=== PATIENT | female | born 1930 | race Hispanic/Latino ===

== ENCOUNTER 2018-04-30 11:14 | Inpatient (IN) | payer MEDICARE ==
--- NOTE | 2018-04-30 11:29 | Emergency Department Report ---
ED Neuro Deficit HPI - General Stated Complaint: AMS Time Seen by Provider: 04/30/18 11:20 Source: patient, EMS Mode of arrival: Stretcher Limitations: Other - History of Present Illness Initial Comments: 87 year old female the past medical history hypertension diabetes presents to the hospital with possible stroke symptoms. Mahi came to the home and at 10:45 AM noticed that patient's speech was abnormal. Patient's son was at the home with her all morning and apparently she was normal prior to this. Patient is alert to self states year is 2000, denies any pain. She presents hypertensive with a glucose that is in the 200s. Patient apparently fell 3 days ago striking her chin area. Ecchymosis noted to area. No LOC reported and patient has had normal mental status until today. - Related Data Home Medications: Previous Rx's Medication Instructions Recorded Last Taken Type Ipratropium/Albuterol Sulfate 1 ampul IH TIDRT ampul.neb 04/16/16 Unknown Rx [DUONEB *Not for PRN Use*] Lisinopril [Zestril TAB] 40 mg PO QDAY tablet 04/16/16 Unknown Rx amLODIPine [Norvasc] 10 mg PO QDAY tablet 04/16/16 Unknown Rx glipiZIDE [Glucotrol] 10 mg PO BIDDIAB tablet 04/16/16 Unknown Rx hydroCHLOROthiazide [HCTZ] 25 mg PO QDAY tablet 04/16/16 Unknown Rx metFORMIN [Glucophage] 1,000 mg PO BIDDIAB tablet 04/16/16 Unknown Rx oxyCODONE /ACETAMINOPHEN [Percocet 1 tab PO Q6HR PRN #20 tablet 04/16/16 Unknown Rx 5/325 mg] Amoxicillin/K Clav Tab [Augmentin 1 tab PO Q12HR #6 tab 09/04/16 Unknown Rx 875MG TAB] Allergies/Adverse Reactions: Allergies Allergy/AdvReac Type Severity Reaction Status Date / Time acetaminophen [From Tylenol] AdvReac Unknown Verified 04/11/16 19:20 ED Review of Systems ROS: Stated complaint: AMS Other details as noted in HPI Comment: All other systems reviewed and negative ED Past Medical Hx - Past Medical History Hx Hypertension: Yes Hx Diabetes: Yes Hx HIV: No - Surgical History Hx Cholecystectomy: Yes Additional Surgical History: Bilateral knee surgery - Social History Smoking Status: Unknown if ever smoked - Medications Home Medications: Home Medications Medication Instructions Recorded Confirmed Last Taken Type Ipratropium/Albuterol Sulfate 1 ampul IH TIDRT ampul.neb 04/16/16 Unknown Rx [DUONEB *Not for PRN Use*] Lisinopril [Zestril TAB] 40 mg PO QDAY tablet 04/16/16 Unknown Rx amLODIPine [Norvasc] 10 mg PO QDAY tablet 04/16/16 Unknown Rx glipiZIDE [Glucotrol] 10 mg PO BIDDIAB tablet 04/16/16 Unknown Rx hydroCHLOROthiazide [HCTZ] 25 mg PO QDAY tablet 04/16/16 Unknown Rx metFORMIN [Glucophage] 1,000 mg PO BIDDIAB tablet 04/16/16 Unknown Rx oxyCODONE /ACETAMINOPHEN [Percocet 1 tab PO Q6HR PRN #20 tablet 04/16/16 Unknown Rx 5/325 mg] Amoxicillin/K Clav Tab [Augmentin 1 tab PO Q12HR #6 tab 09/04/16 Unknown Rx 875MG TAB] ED Neuro Physical Exam - General Suspected Stroke: Yes - NIHSS Assessment Interval: Baseline 1a. Level of Consciousness: alert/keenly responsive 1b. LOC Questions: answers both correctly 1c. LOC Commands: performs tasks correctly 2. Best Gaze: normal 3. Visual: no visual loss 4. Facial Palsy: normal symmetrical movement 5b. Motor Arm Right: no drift 5a. Motor Arm Left: no drift 6a. Motor Leg Left: no drift 6b. Motor Leg Right: no drift 7. Limb Ataxia: absent 8. Sensory: normal 9. Best Language: no aphasia 10. Dysarthria: mild/moderate dysarthria 11. Extinction/Inattention: no abnormality Total Score: 1 Stroke Severity: Minor Stroke - Other Other exam information: General: No limitations, patient is alert in no acute distress Head exam: Ecchymosis under [place] from recent fall Eyes exam: Normal appearance, pupils equal reactive to light, extraocular movements intact ENT: Moist mucous membrane Neck exam: Normal inspection, full range of motion, no meningismus nontender Respiratory exam: Clear to auscultation bilateral, no wheezes, rales, crackles Cardiovascular: Normal rate and rhythm, normal heart sounds Abdomen: Soft, nondistended, and nontender, with normal bowel sounds, no rebound, or guarding Extremity: Full range of motion normal inspection no deformity. Right upper ant tib pain and bruising, from Back: Normal Inspection, full range of motion, no tenderness Neurologic: Alert, oriented x2, mildly surred speech, cranial nerves intact, no motor or sensory deficit see NIHSS Psychiatric: normal affect, normal mood Skin: Warm, dry, intact ED Course Vital Signs 04/30/18 04/30/18 04/30/18 11:34 11:37 11:46 Temperature Pulse Rate 77 83 Respiratory 22 22 22 Rate Blood Pressure 172/84 Blood Pressure [Left] O2 Sat by Pulse 98 99 98 Oximetry 04/30/18 04/30/18 04/30/18 12:01 12:05 12:40 Temperature 98.4 F Pulse Rate 79 70 70 Respiratory 28 H 24 25 H Rate Blood Pressure 172/84 168/57 Blood Pressure 168/57 [Left] O2 Sat by Pulse 99 100 100 Oximetry 04/30/18 04/30/18 13:00 13:31 Temperature Pulse Rate 76 81 Respiratory 16 27 H Rate Blood Pressure 167/68 146/53 Blood Pressure [Left] O2 Sat by Pulse 98 98 Oximetry - Consultations Consultation #1: 04/30/18 12:02 Dr Wilcox (neuro) evaluated pt and pt has some mild confusion but otherwise nonfocal, tpa not rec at this tmie - Lab Data Result diagrams: 04/30/18 11:35 04/30/18 11:35 Lab Results 04/30/18 04/30/18 04/30/18 Range/Units 11:35 11:35 11:35 WBC 11.4 H (4.5-11.0) K/mm3 RBC 4.91 (3.65-5.03) M/mm3 Hgb 14.9 H (10.1-14.3) gm/dl Hct 44.4 H (30.3-42.9) % MCV 90 (79-97) fl MCH 30 (28-32) pg MCHC 34 (30-34) % RDW 14.6 (13.2-15.2) % Plt Count 273 (140-440) K/mm3 Lymph % (Auto) 30.6 (13.4-35.0) % Lander % (Auto) 9.1 H (0.0-7.3) % Eos % (Auto) 1.2 (0.0-4.3) % Baso % (Auto) 0.8 (0.0-1.8) % Lymph # 3.5 (1.2-5.4) K/mm3 Lander # 1.0 H (0.0-0.8) K/mm3 Eos # 0.1 (0.0-0.4) K/mm3 Baso # 0.1 (0.0-0.1) K/mm3 Seg Neutrophils % 58.3 (40.0-70.0) % Seg Neutrophils # 6.7 (1.8-7.7) K/mm3 PT 12.4 (12.2-14.9) Sec. INR 0.87 (0.87-1.13) APTT 26.2 (24.2-36.6) Sec. Thrombin Time (15.1-19.6) Sec. Sodium 141 (137-145) mmol/L Potassium 3.7 (3.6-5.0) mmol/L Chloride 101.0 (98-107) mmol/L Carbon Dioxide 20 L (22-30) mmol/L Anion Gap 24 mmol/L BUN 16 (7-17) mg/dL Creatinine 1.0 (0.7-1.2) mg/dL Estimated GFR 53 ml/min BUN/Creatinine Ratio 16 % Glucose 224 H (65-100) mg/dL Calcium 9.0 (8.4-10.2) mg/dL Magnesium (1.7-2.3) mg/dL Troponin T < 0.010 (0.00-0.029) ng/mL Urine Color (Yellow) Urine Turbidity (Clear) Urine pH (5.0-7.0) Ur Specific Loyal (1.003-1.030) Urine Protein (Negative) mg/dL Urine Glucose (UA) (Negative) mg/dL Urine Ketones (Negative) mg/dL Urine Blood (Negative) Urine Nitrite (Negative) Urine Bilirubin (Negative) Urine Urobilinogen (<2.0) mg/dL Ur Leukocyte Esterase (Negative) Urine WBC (Auto) (0.0-6.0) /HPF Urine RBC (Auto) (0.0-6.0) /HPF Urine Bacteria (Auto) (Negative) /HPF Urine Mucus /HPF 04/30/18 04/30/18 04/30/18 Range/Units 11:35 11:35 11:35 WBC (4.5-11.0) K/mm3 RBC (3.65-5.03) M/mm3 Hgb (10.1-14.3) gm/dl Hct (30.3-42.9) % MCV (79-97) fl MCH (28-32) pg MCHC (30-34) % RDW (13.2-15.2) % Plt Count (140-440) K/mm3 Lymph % (Auto) (13.4-35.0) % Lander % (Auto) (0.0-7.3) % Eos % (Auto) (0.0-4.3) % Baso % (Auto) (0.0-1.8) % Lymph # (1.2-5.4) K/mm3 Lander # (0.0-0.8) K/mm3 Eos # (0.0-0.4) K/mm3 Baso # (0.0-0.1) K/mm3 Seg Neutrophils % (40.0-70.0) % Seg Neutrophils # (1.8-7.7) K/mm3 PT (12.2-14.9) Sec. INR (0.87-1.13) APTT (24.2-36.6) Sec. Thrombin Time 16.6 (15.1-19.6) Sec. Sodium (137-145) mmol/L Potassium (3.6-5.0) mmol/L Chloride (98-107) mmol/L Carbon Dioxide (22-30) mmol/L Anion Gap mmol/L BUN (7-17) mg/dL Creatinine (0.7-1.2) mg/dL Estimated GFR ml/min BUN/Creatinine Ratio % Glucose (65-100) mg/dL Calcium (8.4-10.2) mg/dL Magnesium 1.60 L (1.7-2.3) mg/dL Troponin T < 0.010 (0.00-0.029) ng/mL Urine Color (Yellow) Urine Turbidity (Clear) Urine pH (5.0-7.0) Ur Specific Loyal (1.003-1.030) Urine Protein (Negative) mg/dL Urine Glucose (UA) (Negative) mg/dL Urine Ketones (Negative) mg/dL Urine Blood (Negative) Urine Nitrite (Negative) Urine Bilirubin (Negative) Urine Urobilinogen (<2.0) mg/dL Ur Leukocyte Esterase (Negative) Urine WBC (Auto) (0.0-6.0) /HPF Urine RBC (Auto) (0.0-6.0) /HPF Urine Bacteria (Auto) (Negative) /HPF Urine Mucus /HPF 04/30/18 Range/Units 12:05 WBC (4.5-11.0) K/mm3 RBC (3.65-5.03) M/mm3 Hgb (10.1-14.3) gm/dl Hct (30.3-42.9) % MCV (79-97) fl MCH (28-32) pg MCHC (30-34) % RDW (13.2-15.2) % Plt Count (140-440) K/mm3 Lymph % (Auto) (13.4-35.0) % Lander % (Auto) (0.0-7.3) % Eos % (Auto) (0.0-4.3) % Baso % (Auto) (0.0-1.8) % Lymph # (1.2-5.4) K/mm3 Lander # (0.0-0.8) K/mm3 Eos # (0.0-0.4) K/mm3 Baso # (0.0-0.1) K/mm3 Seg Neutrophils % (40.0-70.0) % Seg Neutrophils # (1.8-7.7) K/mm3 PT (12.2-14.9) Sec. INR (0.87-1.13) APTT (24.2-36.6) Sec. Thrombin Time (15.1-19.6) Sec. Sodium (137-145) mmol/L Potassium (3.6-5.0) mmol/L Chloride (98-107) mmol/L Carbon Dioxide (22-30) mmol/L Anion Gap mmol/L BUN (7-17) mg/dL Creatinine (0.7-1.2) mg/dL Estimated GFR ml/min BUN/Creatinine Ratio % Glucose (65-100) mg/dL Calcium (8.4-10.2) mg/dL Magnesium (1.7-2.3) mg/dL Troponin T (0.00-0.029) ng/mL Urine Color Yellow (Yellow) Urine Turbidity Clear (Clear) Urine pH 5.0 (5.0-7.0) Ur Specific Loyal 1.011 (1.003-1.030) Urine Protein <15 mg/dl (Negative) mg/dL Urine Glucose (UA) >=500 (Negative) mg/dL Urine Ketones Neg (Negative) mg/dL Urine Blood Neg (Negative) Urine Nitrite Neg (Negative) Urine Bilirubin Neg (Negative) Urine Urobilinogen < 2.0 (<2.0) mg/dL Ur Leukocyte Esterase Neg (Negative) Urine WBC (Auto) 1.0 (0.0-6.0) /HPF Urine RBC (Auto) < 1.0 (0.0-6.0) /HPF Urine Bacteria (Auto) 4+ (Negative) /HPF Urine Mucus Few /HPF - EKG Data -: EKG Interpreted by Fl EKG shows normal: sinus rhythm, axis (qrs 100), QRS complexes (qrsd 91), ST-T waves (no stemi) Rate: normal (75) - Radiology Data Radiology results: report reviewed PROCEDURE: CT CERVICAL SPINE WO CON TECHNIQUE: Computerized tomography of the cervical spine was performed from the skull base to T1 without contrast material. Coronal and sagittal reconstructed imaging provided. CT DOSE LENGTH PRODUCT: 448.84 mGy-cm. HISTORY: fall with chin injury COMPARISONS: None currently available. FINDINGS: Diffuse osteopenia limits evaluation. There is no fracture. There is no atlantooccipital dislocation. C1-C2: Moderate to severe arthritis with superior subluxation. Hypertrophic osseous changes noted. Mild prominence of the transverse ligament without significant canal narrowing. C2- C3: Symmetrical bulge. Bilateral uncovertebral and facet arthropathy. Moderate left foraminal narrowing. Right foramen is intact. Mild spinal canal narrowing. C3-C4: Minimal anterior subluxation. Symmetrical bulge. Left uncovertebral and facet arthropathy. Severe left foraminal narrowing. Mild right foraminal narrowing. No significant canal narrowing. C4-C5: Symmetrical bulge. Left uncovertebral and facet arthropathy. Severe left foraminal narrowing. Mild right foraminal narrowing. No significant canal narrowing. C5-C6: Symmetrical disc osteophyte complex. Superimposed central disc aspect protrusion measuring approximately 2.8 mm. Mild spinal canal narrowing. Bilateral foraminal are intact. C6-C7: Minimal anterior subluxation. Symmetrical disc osteophyte complex. Moderate to severe right foraminal narrowing. Mild left foraminal narrowing. Mild spinal canal narrowing. C7-T1: No significant canal or foraminal narrowing. Prevertebral soft tissues are unremarkable. Mild carotid vascular calcifications. Minimal right apical pleural thickening. IMPRESSION: * No fracture. * Diffuse osteopenia. * Degenerative discs and arthropathy. 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 CT FACIAL BONES WITHOUT CONTRAST: HISTORY: Fall, chin injury. TECHNIQUE: Helical CT images with sagittal and coronal CT reformations. FINDINGS: All paranasal sinuses are clear. No sinus wall fracture, fluid level or opacification. The orbital cavities are symmetric and intact. The mandible is intact. The skull base and upper cervical spine demonstrate no evidence for acute injury. Poor dentition is noted. IMPRESSION: Unremarkable CT of the facial bones. CT HEAD WITHOUT CONTRAST: HISTORY: Stroke, neurological deficit. TECHNIQUE: Sequential CT images without contrast. FINDINGS: Images obtained show bilateral prominence of the sulci and ventricles. There are no abnormal intra- or extra- axial blood or fluid collections. There are no focal masses or evidence of mass effect. The hel[place] white matter differentiation appears within normal limits. Regions of periventricular decreased attenuation are consistent with microangiopathic ischemic disease. The posterior fossa structures including the fourth ventricle, cerebellum, and brainstem appear normal. IMPRESSION: Evidence of atrophy and microangiopathic ischemic disease. No acute intracranial process noted. No significant change since 09/01/16. CXR report pending right tib fib report pending - Differential Diagnosis CVA, mass, ICH, encephalopathy Critical Care Time: No Critical care attestation.: If time is entered above; I have spent that time in minutes in the direct care of this critically ill patient, excluding procedure time. ED Disposition Clinical Impression: Altered mental status, Slurred speech, History of recent fall, Hypertension Disposition: OP ADMIT IP TO THIS HOSP Is pt being admited?: Yes Condition: Stable Time of Disposition: 14:27 (Dr Austin/hosp)
--- NOTE | 2018-04-30 11:46 | Cat Scan Report ---
CT HEAD WITHOUT CONTRAST: HISTORY: Stroke, neurological deficit. TECHNIQUE: Sequential CT images without contrast. FINDINGS: Images obtained show bilateral prominence of the sulci and ventricles. There are no abnormal intra- or extra-axial blood or fluid collections. There are no focal masses or evidence of mass effect. The hel[place] white matter differentiation appears within normal limits. Regions of periventricular decreased attenuation are consistent with microangiopathic ischemic disease. The posterior fossa structures including the fourth ventricle, cerebellum, and brainstem appear normal. IMPRESSION: Evidence of atrophy and microangiopathic ischemic disease. No acute intracranial process noted. No significant change since 09/01/16.
--- NOTE | 2018-04-30 11:46 | Cat Scan Report ---
CT FACIAL BONES WITHOUT CONTRAST: HISTORY: Fall, chin injury. TECHNIQUE: Helical CT images with sagittal and coronal CT reformations. FINDINGS: All paranasal sinuses are clear. No sinus wall fracture, fluid level or opacification. The orbital cavities are symmetric and intact. The mandible is intact. The skull base and upper cervical spine demonstrate no evidence for acute injury. Poor dentition is noted. IMPRESSION: Unremarkable CT of the facial bones.
[2018-04-30 11:47] LABS: Basophils # (Auto) 0.1 K/mm3 (0.0-0.1); Basophils % (Auto) 0.8 % (0.0-1.8); Eosinophils # (Auto) 0.1 K/mm3 (0.0-0.4); Eosinophils % (Auto) 1.2 % (0.0-4.3); Hematocrit 44.4 % (30.3-42.9); Hemoglobin 14.9 gm/dl (10.1-14.3); Lymphocytes # (Auto) 3.5 K/mm3 (1.2-5.4); Lymphocytes % (Auto) 30.6 % (13.4-35.0); Mean Corpuscular HGB Conc 34 % (30-34); Mean Corpuscular Volume 90 fl (79-97); Monocytes % (Auto) 9.1 % (0.0-7.3); Platelet Count 273 K/mm3 (140-440); Red Blood Count 4.91 M/mm3 (3.65-5.03); Red Cell Distribution Width 14.6 % (13.2-15.2)
[2018-04-30 11:57] LABS: INR 0.87 (0.87-1.13)
[2018-04-30 11:58] LABS: Partial Thromboplastin Time 26.2 Sec. (24.2-36.6)
[2018-04-30 12:02] LABS: BUN/Creatinine Ratio 16; Blood Urea Nitrogen 16 mg/dL (7-17); Hemolysis Index 7
--- NOTE | 2018-04-30 12:30 | Emergency Department Report ---
ED Neuro Deficit HPI - General Chief Complaint: Neuro Symptoms/Deficit Stated Complaint: AMS Time Seen by Provider: 04/30/18 11:20 Source: patient, EMS Mode of arrival: Stretcher Limitations: Altered Mental Status, Other - History of Present Illness -: unknown Time: 11:37 Last Observed Normal: 10:45 (per nurse who obtained info from son) Location: altered Presenting Symptoms: Present: Altered Mental Status Place: other (she was at her [facility]) - Related Data Home Medications: Previous Rx's Medication Instructions Recorded Last Taken Type Ipratropium/Albuterol Sulfate 1 ampul IH TIDRT ampul.neb 04/16/16 Unknown Rx [DUONEB *Not for PRN Use*] Lisinopril [Zestril TAB] 40 mg PO QDAY tablet 04/16/16 Unknown Rx amLODIPine [Norvasc] 10 mg PO QDAY tablet 04/16/16 Unknown Rx glipiZIDE [Glucotrol] 10 mg PO BIDDIAB tablet 04/16/16 Unknown Rx hydroCHLOROthiazide [HCTZ] 25 mg PO QDAY tablet 04/16/16 Unknown Rx metFORMIN [Glucophage] 1,000 mg PO BIDDIAB tablet 04/16/16 Unknown Rx oxyCODONE /ACETAMINOPHEN [Percocet 1 tab PO Q6HR PRN #20 tablet 04/16/16 Unknown Rx 5/325 mg] Amoxicillin/K Clav Tab [Augmentin 1 tab PO Q12HR #6 tab 09/04/16 Unknown Rx 875MG TAB] Allergies/Adverse Reactions: Allergies Allergy/AdvReac Type Severity Reaction Status Date / Time acetaminophen [From Tylenol] AdvReac Unknown Verified 04/11/16 19:20 ED Review of Systems ROS: Stated complaint: AMS Other details as noted in HPI ED Past Medical Hx - Past Medical History Previous Medical History?: Yes Hx Hypertension: Yes Hx Diabetes: Yes Hx HIV: No Additional medical history: hypothyroidism - Surgical History Past Surgical History?: Yes Hx Cholecystectomy: Yes Additional Surgical History: Bilateral knee surgery - Social History Smoking Status: Unknown if ever smoked - Medications Home Medications: Home Medications Medication Instructions Recorded Confirmed Last Taken Type Ipratropium/Albuterol Sulfate 1 ampul IH TIDRT ampul.neb 04/16/16 Unknown Rx [DUONEB *Not for PRN Use*] Lisinopril [Zestril TAB] 40 mg PO QDAY tablet 04/16/16 Unknown Rx amLODIPine [Norvasc] 10 mg PO QDAY tablet 04/16/16 Unknown Rx glipiZIDE [Glucotrol] 10 mg PO BIDDIAB tablet 04/16/16 Unknown Rx hydroCHLOROthiazide [HCTZ] 25 mg PO QDAY tablet 04/16/16 Unknown Rx metFORMIN [Glucophage] 1,000 mg PO BIDDIAB tablet 04/16/16 Unknown Rx oxyCODONE /ACETAMINOPHEN [Percocet 1 tab PO Q6HR PRN #20 tablet 04/16/16 Unknow n Rx 5/325 mg] Amoxicillin/K Clav Tab [Augmentin 1 tab PO Q12HR #6 tab 09/04/16 Unknown Rx 875MG TAB] ED Neuro Physical Exam - General Limitations: Other Suspected Stroke: Yes - Neurological Exam Neurological exam: Present: altered - NIHSS Assessment Interval: Baseline 1a. Level of Consciousness: alert/keenly responsive 1b. LOC Questions: answers 1 question correctly 1c. LOC Commands: performs tasks correctly 2. Best Gaze: normal 3. Visual: no visual loss 4. Facial Palsy: normal symmetrical movement 5b. Motor Arm Right: no drift 5a. Motor Arm Left: no drift 6a. Motor Leg Left: no drift 6b. Motor Leg Right: no drift 7. Limb Ataxia: absent 8. Sensory: normal 9. Best Language: no aphasia 10. Dysarthria: normal 11. Extinction/Inattention: no abnormality Total Score: 1 Stroke Severity: Minor Stroke - Psychiatric Psychiatric exam: Present: anxious ED Course Vital Signs 04/30/18 04/30/18 04/30/18 11:34 11:37 11:46 Temperature Pulse Rate 77 83 Respiratory 22 22 22 Rate Blood Pressure 172/84 Blood Pressure [Left] O2 Sat by Pulse 98 99 98 Oximetry 04/30/18 12:05 Temperature 98.4 F Pulse Rate 70 Respiratory 24 Rate Blood Pressure Blood Pressure 168/57 [Left] O2 Sat by Pulse 100 Oximetry - Lab Data Result diagrams: 04/30/18 11:35 04/30/18 11:35 Lab Results 04/30/18 04/30/18 04/30/18 Range/Units 11:35 11:35 11:35 WBC 11.4 H (4.5-11.0) K/mm3 RBC 4.91 (3.65-5.03) M/mm3 Hgb 14.9 H (10.1-14.3) gm/dl Hct 44.4 H (30.3-42.9) % MCV 90 (79-97) fl MCH 30 (28-32) pg MCHC 34 (30-34) % RDW 14.6 (13.2-15.2) % Plt Count 273 (140-440) K/mm3 Lymph % (Auto) 30.6 (13.4-35.0) % [place] % (Auto) 9.1 H (0.0-7.3) % Eos % (Auto) 1.2 (0.0-4.3) % Baso % (Auto) 0.8 (0.0-1.8) % Lymph # 3.5 (1.2-5.4) K/mm3 [place] # 1.0 H (0.0-0.8) K/mm3 Eos # 0.1 (0.0-0.4) K/mm3 Baso # 0.1 (0.0-0.1) K/mm3 Seg Neutrophils % 58.3 (40.0-70.0) % Seg Neutrophils # 6.7 (1.8-7.7) K/mm3 PT 12.4 (12.2-14.9) Sec. INR 0.87 (0.87-1.13) APTT 26.2 (24.2-36.6) Sec. Thrombin Time (15.1-19.6) Sec. Sodium 141 (137-145) mmol/L Potassium 3.7 (3.6-5.0) mmol/L Chloride 101.0 (98-107) mmol/L Carbon Dioxide 20 L (22-30) mmol/L Anion Gap 24 mmol/L BUN 16 (7-17) mg/dL Creatinine 1.0 (0.7-1.2) mg/dL Estimated GFR 53 ml/min BUN/Creatinine Ratio 16 % Glucose 224 H (65-100) mg/dL Calcium 9.0 (8.4-10.2) mg/dL Magnesium (1.7-2.3) mg/dL Troponin T < 0.010 (0.00-0.029) ng/mL 04/30/18 04/30/18 Range/Units 11:35 11:35 WBC (4.5-11.0) K/mm3 RBC (3.65-5.03) M/mm3 Hgb (10.1-14.3) gm/dl Hct (30.3-42.9) % MCV (79-97) fl MCH (28-32) pg MCHC (30-34) % RDW (13.2-15.2) % Plt Count (140-440) K/mm3 Lymph % (Auto) (13.4-35.0) % [place] % (Auto) (0.0-7.3) % Eos % (Auto) (0.0-4.3) % Baso % (Auto) (0.0-1.8) % Lymph # (1.2-5.4) K/mm3 [place] # (0.0-0.8) K/mm3 Eos # (0.0-0.4) K/mm3 Baso # (0.0-0.1) K/mm3 Seg Neutrophils % (40.0-70.0) % Seg Neutrophils # (1.8-7.7) K/mm3 PT (12.2-14.9) Sec. INR (0.87-1.13) APTT (24.2-36.6) Sec. Thrombin Time 16.6 (15.1-19.6) Sec. Sodium (137-145) mmol/L Potassium (3.6-5.0) mmol/L Chloride (98-107) mmol/L Carbon Dioxide (22-30) mmol/L Anion Gap mmol/L BUN (7-17) mg/dL Creatinine (0.7-1.2) mg/dL Estimated GFR ml/min BUN/Creatinine Ratio % Glucose (65-100) mg/dL Calcium (8.4-10.2) mg/dL Magnesium 1.60 L (1.7-2.3) mg/dL Troponin T (0.00-0.029) ng/mL - Radiology Data Radiology results: report reviewed, image reviewed - Medical Decision Making [facility] Consult Note Impression: 1. r/o stroke vs hypertensive emergency Recommendations: 1. Not a candidate for tPa given currently w/o disabling symptoms 2. Not an LVO 3. if no blood on head CT then aspirin x 1, adn recommend MRI brain to r/o stroke, MRA H/N, inpatient w/u; d/w ED physician metrics: LKN: 1045 per nurse (unable to confirm this, called number on chart) door: 1120 TS called 1130 TS connected [id number] NIHSS [id number] Anna Wilcox MD [facility], [facility] [phone] CC: HPI: 87 yo female who is unable to tell me why she's hear, she rubs her right chin/jaw region when I ask her but unable to tell me whats wrong; per nurse at bedside the report from son was that she was LKN 1045 hrs and while at [facility] she was noted to be more talkative than normal and not making comp lete sense, seemed confused, no focal features noted; BP on arrival was 230/119; now down to 172/84. VS noted NIHSS = 1 for missing month appears anxious, confused Medical Decision Making: - Extensive number of diagnosis or management options are considered above. - Extensive amount of complex data reviewed. - High risk of complication and/or morbidity or mortality are associated with differential diagnostic considerations above. - There may be Uncertain outcome and increased probability of prolonged functional impairment or high probability of severe prolonged functional impairment associated with some of these differential diagnosis. Medical Data Reviewed: 1.Data reviewed include clinical labs, radiology, Medical Tests; 2.Tests results discussed w/performing or interpreting physician; 3.Obtaining/reviewing old medical records; 4.Obtaining case history from another source; 5.Independent review of image, tracing or specimen. Critical care attestation.: If time is entered above; I have spent that time in minutes in the direct care of this critically ill patient, excluding procedure time. ED Disposition Clinical Impression: Altered mental status Disposition: DC-09 OP ADMIT IP TO THIS HOSP Is pt being admited?: Yes Condition: Stable Referrals: JUAN JOSE MENDES MD [Primary Care Provider] - 3-5 Days
[2018-04-30 12:44] LABS: Bacteria,Urine 4+ /HPF (Negative); Bilirubin,Urine NEG (Negative); Blood,Urine NEG (Negative); Color,Urine Yellow (Yellow); Mucus,Urine FEW /HPF; Protein,Urine <15 mg/dL mg/dL (Negative); RBC,Urine < 1.0 /HPF (0.0-6.0); Urobilinogen,Urine < 2.0 mg/dL (<2.0)
[2018-04-30] MEDS ORDERED: MAGNESIUM SULFATE 1 GM in NACL 0.9% 50 ML IV ONE (12:56)
--- NOTE | 2018-04-30 13:50 | Cat Scan Report ---
PROCEDURE: CT CERVICAL SPINE WO CON TECHNIQUE: Computerized tomography of the cervical spine was performed from the skull base to T1 with out contrast material. Coronal and sagittal reconstructed imaging provided. CT DOSE LENGTH PRODUCT: 448.84 mGy-cm. HISTORY: fall with chin injury COMPARISONS: None currently available. FINDINGS: Diffuse osteopenia limits evaluation. There is no fracture. There is no atlantooccipital dislocation. C1-C2: Moderate to severe arthritis with superior subluxation. Hypertrophic osseous changes noted. Mi ld prominence of the transverse ligament without significant canal narrowing. C2-C3: Symmetrical bulge. Bilateral uncovertebral and facet arthropathy. Moderate left foraminal narr owing. Right foramen is intact. Mild spinal canal narrowing. C3-C4: Minimal anterior subluxation. Symmetrical bulge. Left uncovertebral and facet arthropathy. Sev ere left foraminal narrowing. Mild right foraminal narrowing. No significant canal narrowing. C4-C5: Symmetrical bulge. Left uncovertebral and facet arthropathy. Severe left foraminal narrowing. Mild right foraminal narrowing. No significant canal narrowing. C5-C6: Symmetrical disc osteophyte complex. Superimposed central disc aspect protrusion measuring devante roximately 2.8 mm. Mild spinal canal narrowing. Bilateral foraminal are intact. C6-C7: Minimal anterior subluxation. Symmetrical disc osteophyte complex. Moderate to severe right fo raminal narrowing. Mild left foraminal narrowing. Mild spinal canal narrowing. C7-T1: No significant canal or foraminal narrowing. Prevertebral soft tissues are unremarkable. Mild carotid vascular calcifications. Minimal right apical pleural thickening. IMPRESSION: * No fracture. * Diffuse osteopenia. * Degenerative discs and arthropathy. 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 This document is electronically signed by West Bullard MD., April 30 2018 01:47:24 PM ET
[2018-04-30] MEDS ORDERED: MAGNESIUM SULFATE 2GM/50ML 0 GM/0 ML BAG IV ONE (14:25)
--- NOTE | 2018-04-30 14:45 | XRay Report ---
AP CHEST: HISTORY: Short of breath AP view of the chest demonstrates a normal mediastinal and cardiac contour with clear lungs and normal bony and soft tissue structures. IMPRESSION: Unremarkable AP chest.
--- NOTE | 2018-04-30 14:45 | XRay Report ---
RIGHT TIBIA/FIBULA: History: Pain Previous right knee replacement is noted. The bones are mildly demineralized but intact. No evidence for fracture, bone lesion or malalignment. The soft tissues are unremarkable. IMPRESSION: No acute injury is identified.
--- NOTE | 2018-04-30 15:47 | History and Physical Report ---
History of Present Illness Chief complaint: confused History of present illness: 87 YO Female with DM, HTN presents to ED for evaluation. Pt was in her usual state of health upon waking from sleep this morning around 0830hrs. Pt is confused and unable to provide history. Pt history taken from ED staff, and family members. Pt was found to be confused, with slurred speech, and generalized weakness around 1045. Pt was found by her hairdresser to have the aforementioned symptoms when it was time to get her hair done this morning. EMS notified, and upon arrival the patient was found to have neurologic deficit. Code Strike was called and the patient transported to [facility]. Pt seen and evaluated in ED and found to have symptoms of CVA. Pt is outside therapeutic window for TPA. No further history obtainable. Pt admitted to telemetry. Pt initiated on CVA protocol. Previous Admission on 09/01/16 reviewed. All listed medication reconciled at time of admission. Past History Past Medical History: diabetes, hypertension, other (debility,dementia) Past Surgical History: total knee replacement Medications and Allergies Allergies Allergy/AdvReac Type Severity Reaction Status Date / Time acetaminophen [From Tylenol] AdvReac Unknown Verified 04/11/16 19:20 Home Medications Medication Instructions Recorded Confirmed Last Taken Type Lisinopril [Zestril TAB] 40 mg PO QDAY tablet 04/16/16 04/30/18 Unknown Rx amLODIPine [Norvasc] 10 mg PO QDAY tablet 04/16/16 04/30/18 Unknown Rx glipiZIDE [Glucotrol] 10 mg PO BIDDIAB tablet 04/16/16 04/30/18 Unknown Rx hydroCHLOROthiazide [HCTZ] 25 mg PO QDAY tablet 04/16/16 04/30/18 Unknown Rx Alendronate Sodium [Fosamax] 70 mg PO QWEEK 04/30/18 04/30/18 Unknown History AtorvaSTATin [Lipitor] 20 mg PO QHS 04/30/18 04/30/18 Unknown History Citalopram [celeXA] 20 mg PO QDAY 04/30/18 04/30/18 Unknown History Levothyroxine [Synthroid] 50 mcg PO QAM 04/30/18 04/30/18 Unknown History Review of Systems ROS unobtainable: due to mental status Exam - Constitutional Vitals: Temp Pulse Resp BP Pulse Ox 98.4 F 73 11 L 152/54 94 04/30/18 12:05 04/30/18 15:00 04/30/18 15:00 04/30/18 15:00 04/30/18 15:00 General appearance: Present: mild distress - EENT Eyes: Present: PERRL ENT: hearing intact, clear oral mucosa - Neck Neck: Present: supple, normal ROM - Respiratory Respiratory effort: normal Respiratory: bilateral: CTA - Cardiovascular Heart Sounds: Present: S1 & S2. Absent: rub, click - Extremities Extremities: pulses symmetrical, No edema Peripheral Pulses: within normal limits - Abdominal General gastrointestinal: Present: soft, non-tender, non-distended, normal bowel sounds Female genitourinary: Present: normal - Integumentary Integumentary: Present: clear, warm, dry - Musculoskeletal Musculoskeletal: gait normal, strength equal bilaterally - Psychiatric Psychiatric: no appropriate mood/affect, no intact judgment & insight, no memory intact - Neurologic Neurologic: CNII-XII intact, moves all extremities, no gait normal Results - Labs CBC & Chem 7: 04/30/18 11:35 04/30/18 11:35 Labs: Abnormal lab results 04/30/18 04/30/18 04/30/18 Range/Units 11:35 11:35 11:35 WBC 11.4 H (4.5-11.0) K/mm3 Hgb 14.9 H (10.1-14.3) gm/dl Hct 44.4 H (30.3-42.9) % [place] % (Auto) 9.1 H (0.0-7.3) % [place] # 1.0 H (0.0-0.8) K/mm3 Carbon Dioxide 20 L (22-30) mmol/L Glucose 224 H (65-100) mg/dL Magnesium 1.60 L (1.7-2.3) mg/dL Assessment and Plan - Patient Problems (1) CVA (cerebral vascular accident) Current Visit: Yes Status: Acute Qualifiers: CVA mechanism: unspecified Qualified Code(s): I63.9 - Cerebral infarction, unspecified Plan to address problem: Stroke Protocol: Admit to telemetry, CT Head, MRI Brain, MRA Brain, Echo, Carotid Doppler, antiplatelet therapy, Neurology consulted in ED, PT/OT/Speech therapy, lipid panel, statin therapy. (2) Encephalopathy Current Visit: Yes Status: Acute Plan to address problem: CT Head, neuro check, thyroid panel, seizure precautions, aspiration precautions, fall precautions (3) Debility Current Visit: Yes Status: Acute Plan to address problem: PT consulted, supportive care, (4) Fall Current Visit: Yes Status: Acute Qualifiers: Encounter type: initial encounter Qualified Code(s): W19.XXXA - Unspecified fall, initial encounter Plan to address problem: Fall precautions, (5) SIRS (systemic inflammatory response syndrome) Current Visit: Yes Status: Acute Plan to address problem: CBC, CMP, Empiric antibiotic therapy x 1 dose, repeat CBC in AM (6) DVT prophylaxis Current Visit: Yes Status: Acute Plan to address problem: SCD to BLE while in bed
[2018-04-30] MEDS ORDERED: DULCOLAX PR PRN (15:51)
[2018-04-30] MEDS ORDERED: ZOFRAN IV PRN (15:51)
[2018-04-30] MEDS ORDERED: MILK OF MAGNESIA PO PRN (15:51)
[2018-04-30] MEDS ORDERED: TYLENOL PO PRN (15:51)
[2018-04-30] MEDS ORDERED: SODIUM CHLORIDE FLUSH SYRINGE 10 ML IV PRN (15:51)
[2018-04-30] MEDS ORDERED: PHENERGAN PR PRN (15:51)
[2018-04-30] MEDS ORDERED: PROVENTIL IH PRN (15:51)
[2018-04-30] MEDS ORDERED: REGLAN PO PRN (15:51)
[2018-04-30] MEDS ORDERED: ROCEPHIN/NS 1 GM/50 ML 1 GM/50 ML BAG IV ONE ×2 (15:56→17:11)
[2018-04-30] MEDS ORDERED: D50W (25GM) Syringe IV PRN (20:39)
[2018-04-30] MEDS: NORVASC PO SCH (21:21)
[2018-04-30] MEDS: ZESTRIL PO SCH (21:22)
[2018-04-30] MEDS: HumaLOG SUB-Q SCH (22:56)
[2018-05-01] MEDS: HumaLOG SUB-Q SCH ×4 (07:40→21:25)
[2018-05-01] MEDS: SYNTHROID PO SCH (10:06)
[2018-05-01] MEDS: NORVASC PO SCH (10:07)
[2018-05-01] MEDS: celeXA PO SCH (10:07)
[2018-05-01] MEDS: ZESTRIL PO SCH (10:08)
--- NOTE | 2018-05-01 12:03 | Progress Note ---
Assessment and Plan Assessment and plan: Acute CVA. Follow-up MRI/MRA, echocardiogram and carotid Dopplers. Neurology consultation. Encephalopathy. Resolved. Hypertension. Continue antihypertensive medications. Diabetes mellitus type II. Continue Accu-Cheks and sliding scale as History Interval history: No new issues overnight. Hospitalist Physical - Constitutional Vitals: Temp Pulse Resp BP Pulse Ox 98.3 F 78 20 125/46 91 05/01/18 11:25 05/01/18 11:25 05/01/18 11:25 05/01/18 11:25 05/01/18 11:25 General appearance: Present: no acute distress - EENT Eyes: Present: PERRL, EOM intact ENT: hearing intact, clear oral mucosa, dentition normal - Neck Neck: Present: supple, normal ROM - Respiratory Respiratory effort: normal Respiratory: bilateral: CTA - Cardiovascular Rhythm: regular Heart Sounds: Present: S1 & S2. Absent: gallop, rub - Extremities Extremities: no ischemia, No edema, Full ROM - Abdominal General gastrointestinal: soft, non-tender, non-distended, normal bowel sounds - Integumentary Integumentary: Present: clear, warm, dry - Neurologic Neurologic: CNII-XII intact, moves all extremities Results - Labs CBC & Chem 7: 04/30/18 11:35 04/30/18 11:35 Labs: Laboratory Last Values WBC 11.4 K/mm3 (4.5-11.0) H 04/30/18 11:35 RBC 4.91 M/mm3 (3.65-5.03) 04/30/18 11:35 Hgb 14.9 gm/dl (10.1-14.3) H 04/30/18 11:35 Hct 44.4 % (30.3-42.9) H 04/30/18 11:35 MCV 90 fl (79-97) 04/30/18 11:35 MCH 30 pg (28-32) 04/30/18 11:35 MCHC 34 % (30-34) 04/30/18 11:35 RDW 14.6 % (13.2-15.2) 04/30/18 11:35 Plt Count 273 K/mm3 (140-440) 04/30/18 11:35 Lymph % (Auto) 30.6 % (13.4-35.0) 04/30/18 11:35 [place] % (Auto) 9.1 % (0.0-7.3) H 04/30/18 11:35 Eos % (Auto) 1.2 % (0.0-4.3) 04/30/18 11:35 Baso % (Auto) 0.8 % (0.0-1.8) 04/30/18 11:35 Lymph # 3.5 K/mm3 (1.2-5.4) 04/30/18 11:35 [place] # 1.0 K/mm3 (0.0-0.8) H 04/30/18 11:35 Eos # 0.1 K/mm3 (0.0-0.4) 04/30/18 11:35 Baso # 0.1 K/mm3 (0.0-0.1) 04/30/18 11:35 Seg Neutrophils % 58.3 % (40.0-70.0) 04/30/18 11:35 Seg Neutrophils # 6.7 K/mm3 (1.8-7.7) 04/30/18 11:35 PT 12.4 Sec. (12.2-14.9) 04/30/18 11:35 INR 0.87 (0.87-1.13) 04/30/18 11:35 APTT 26.2 Sec. (24.2-36.6) 04/30/18 11:35 Thrombin Time 16.6 Sec. (15.1-19.6) 04/30/18 11:35 Sodium 141 mmol/L (137-145) 04/30/18 11:35 Potassium 3.7 mmol/L (3.6-5.0) 04/30/18 11:35 Chloride 101.0 mmol/L (98-107) 04/30/18 11:35 Carbon Dioxide 20 mmol/L (22-30) L 04/30/18 11:35 Anion Gap 24 mmol/L 04/30/18 11:35 BUN 16 mg/dL (7-17) 04/30/18 11:35 Creatinine 1.0 mg/dL (0.7-1.2) 04/30/18 11:35 Estimated GFR 53 ml/min 04/30/18 11:35 BUN/Creatinine Ratio 16 % 04/30/18 11:35 Glucose 224 mg/dL (65-100) H 04/30/18 11:35 POC Glucose 159 (70-105) H 05/01/18 08:07 Calcium 9.0 mg/dL (8.4-10.2) 04/30/18 11:35 Magnesium 1.60 mg/dL (1.7-2.3) L 04/30/18 11:35 Troponin T < 0.010 ng/mL (0.00-0.029) 04/30/18 11:35 Urine Color Yellow (Yellow) 04/30/18 12:05 Urine Turbidity Clear (Clear) 04/30/18 12:05 Urine pH 5.0 (5.0-7.0) 04/30/18 12:05 Ur Specific [place] 1.011 (1.003-1.030) 04/30/18 12:05 Urine Protein <15 mg/dl mg/dL (Negative) 04/30/18 12:05 Urine Glucose (UA) >=500 mg/dL (Negative) 04/30/18 12:05 Urine Ketones Neg mg/dL (Negative) 04/30/18 12:05 Urine Blood Neg (Negative) 04/30/18 12:05 Urine Nitrite Neg (Negative) 04/30/18 12:05 Urine Bilirubin Neg (Negative) 04/30/18 12:05 Urine Urobilinogen < 2.0 mg/dL (<2.0) 04/30/18 12:05 Ur Leukocyte Esterase Neg (Negative) 04/30/18 12:05 Urine WBC (Auto) 1.0 /HPF (0.0-6.0) 04/30/18 12:05 Urine RBC (Auto) < 1.0 /HPF (0.0-6.0) 04/30/18 12:05 Urine Bacteria (Auto) 4+ /HPF (Negative) 04/30/18 12:05 Urine Mucus Few /HPF 04/30/18 12:05 Active Medications - Current Medications Current Medications: Generic Name Dose Route Start Last Admin Trade Name Freq PRN Reason Stop Dose Admin Acetaminophen 650 mg 04/30/18 15:51 Tylenol PO Q4H PRN Pain, Mild (1-3) Albuterol 2.5 mg 04/30/18 15:51 Proventil IH Q3HRT PRN Shortness Of Breath Amlodipine Besylate 10 mg 04/30/18 22:00 05/01/18 10:07 Norvasc PO 10 mg QDAY [facility] Administration Atorvastatin Calcium 20 mg 04/30/18 22:00 04/30/18 21:22 Lipitor PO 20 mg QHS [facility] Administration Bisacodyl 10 mg 04/30/18 15:51 Dulcolax AR QDAY PRN Constipation Citalopram Hydrobromide 20 mg 05/01/18 10:00 05/01/18 10:07 Celexa PO 20 mg QDAY [facility] Administration Dextrose 50 ml 04/30/18 20:39 D50w (25gm) Syringe IV PRN PRN Hypoglycemia Insulin Human Lispro 0 unit 04/30/18 22:00 04/30/18 22:56 Humalog SUB-Q Not Given [facility] Protocol Levothyroxine Sodium 50 mcg 05/01/18 10:00 05/01/18 10:06 Synthroid PO 50 mcg QAM [facility] Administration Lisinopril 40 mg 04/30/18 22:00 05/01/18 10:08 Zestril PO 40 mg QDAY [facility] Administration Magnesium Hydroxide 30 ml 04/30/18 15:51 Milk Of Magnesia PO Q4H PRN Constipation Metoclopramide HCl 10 mg 04/30/18 15:51 Reglan PO Q6H PRN Nausea And Vomiting Ondansetron HCl 4 mg 04/30/18 15:51 Zofran IV Q8H PRN Nausea And Vomiting Promethazine HCl 25 mg 04/30/18 15:51 Phenergan AR Q6H PRN Nausea And Vomiting Sodium Chloride 10 ml 04/30/18 15:51 Sodium Chloride Flush Syringe 10 Ml IV PRN PRN LINE FLUSH
--- NOTE | 2018-05-01 16:42 | Vascular Lab Report ---
PROCEDURE: VL CAROTID DUPLEX BILAT TECHNIQUE: Duplex Doppler ultrasound of the common, internal and external carotid arteries and the v ertebral arteries was performed bilaterally. Quintero scale imaging, velocity spectral waveform analysis, and color flow Doppler were employed. HISTORY: CVA COMPARISONS: None . Note: Measurement of carotid stenosis is based on flow velocity values that correlate with the [place] Symptomatic Carotid Endarterectomy Trial (NASCET) based stenosis criteria using the internal carotid artery diameter as the denominator for stenosis calculation. FINDINGS: RIGHT carotid artery: Velocities: ICA PSV: 77 cm/sec ICA End diastolic: 12 cm/sec CCA PSV: 76 cm/sec IC/CC ratio: 1.01 Plaque/color flow: Mild heterogeneous plaque without significant spectral broadening or abnormal col or flow . RIGHT vertebral artery: Antegrade systolic and diastolic flow LEFT carotid artery: Velocities: ICA PSV: 63 cm/sec ICA End diastolic: 9 cm/sec CCA PSV: 130 cm/sec IC/CC ratio: 0.48 Plaque/color flow: Mild heterogeneous plaque without significant spectral broadening or abnormal col or flow . LEFT vertebral artery: Antegrade systolic and diastolic flow IMPRESSION: 1. RIGHT carotid: No hemodynamically significant (less than 50 percent) internal carotid artery marky nosis. 2. LEFT carotid: No hemodynamically significant (less than 50 percent) internal carotid artery sten osis. 3. Vertebral arteries: Bilaterally antegrade. This document is electronically signed by Tabby Jacob., May 01 2018 04:40:24 PM ET
--- NOTE | 2018-05-01 19:07 | Progress Note ---
Subjective Date of service: 05/01/18 Interval history: agree with the ED nbote suspect new stroke and dementia with amnesia and confusion CT shows severe atrophy full note dictated Objective - Vital Sign Vital Signs - 12hr 05/01/18 05/01/18 05/01/18 08:00 10:07 10:08 Temperature 98.4 F Pulse Rate 74 89 89 Respiratory 20 Rate Blood Pressure 122/38 146/46 146/46 O2 Sat by Pulse 91 Oximetry 05/01/18 05/01/18 11:25 15:57 Temperature 98.3 F 98.2 F Pulse Rate 78 72 Respiratory 20 18 Rate Blood Pressure 125/46 117/41 O2 Sat by Pulse 91 94 Oximetry - Laboratory Findings CBC and BMP: 04/30/18 11:35 04/30/18 11:35 Abnormal Lab Findings: Abnormal Labs 04/30/18 04/30/18 04/30/18 11:21 11:35 11:35 WBC 11.4 H Hgb 14.9 H Hct 44.4 H [place] % (Auto) 9.1 H [place] # 1.0 H Carbon Dioxide 20 L Glucose 224 H POC Glucose 213 H Magnesium 04/30/18 04/30/18 05/01/18 11:35 22:16 08:07 WBC Hgb Hct [place] % (Auto) [place] # Carbon Dioxide Glucose POC Glucose 154 H 159 H Magnesium 1.60 L 05/01/18 05/01/18 11:28 16:00 WBC Hgb Hct [place] % (Auto) [place] # Carbon Dioxide Glucose POC Glucose 190 H 147 H Magnesium
--- NOTE | 2018-05-01 22:23 | Consultation ---
HISTORY OF PRESENT ILLNESS: The patient presented to the Emergency Room by EMS with a history of confusion and disorientation. Family members thought that she was not taking her medication very well. A CT scan of the head initially showed a large degree of atrophy and she may at some point have had a seizure. The patient on presentation was acutely confused, hypertensive. She presented to the hospital with abnormal speech. The son witnessed this episode and stated that she apparently did not recognize who people were, cannot follow commands. PHYSICAL EXAMINATION: VITAL SIGNS: On my examination at this point she is alert, but slow to respond. She does not know where she is. She has bilateral weakness of upper extremities. She has a right gaze preference. Motor tone is reduced throughout. The patient has also evidence of a right tibial fracture on evaluation of the lower extremity, may have contributed to her fall or may have been occurred as a result of the fall. IMPRESSION AND PLAN: This patient has severe confusion, delirium related to a fall and I think this was the cause of a possible reinjury to the right leg, although the results of the study does not show any fracture of the right tibia or fibula. There was an old right knee replacement noted. I think she has had a series of small strokes. She has also marked cerebral atrophy. We would recommend getting an EEG to further assess whether she may have had a seizure. She seems neurologically stable. I spoke with the son and advised him of my findings and we will follow the patient with you. JOB# [id number] ROBERT/JOSE ARMANDO
[2018-05-02] MEDS: HumaLOG SUB-Q SCH ×4 (08:22→23:11)
[2018-05-02] MEDS: NORVASC PO SCH (09:18)
[2018-05-02] MEDS: celeXA PO SCH (09:19)
[2018-05-02] MEDS: ZESTRIL PO SCH (09:19)
[2018-05-02] MEDS: SYNTHROID PO SCH (09:19)
--- NOTE | 2018-05-02 10:28 | Progress Note ---
Assessment and Plan Assessment and plan: Acute CVA. Follow-up MRI/MRA, echocardiogram, Carotid Dopplers. Neurology consultation. Encephalopathy. Resolved. Hypertension. Continue antihypertensive medications. Diabetes mellitus type II. Continue Accu-Cheks and sliding scale as History Interval history: No new issues overnight. Hospitalist Physical - Constitutional Vitals: Temp Pulse Resp BP Pulse Ox 98.4 F 76 18 136/62 93 05/02/18 07:47 05/02/18 09:19 05/02/18 07:47 05/02/18 09:19 05/02/18 09:23 General appearance: Present: no acute distress - EENT Eyes: Present: PERRL, EOM intact ENT: hearing intact, clear oral mucosa, dentition normal - Neck Neck: Present: supple, normal ROM - Respiratory Respiratory effort: normal Respiratory: bilateral: CTA - Cardiovascular Rhythm: regular Heart Sounds: Present: S1 & S2. Absent: gallop, rub - Extremities Extremities: no ischemia, No edema, Full ROM - Abdominal General gastrointestinal: soft, non-tender, non-distended, normal bowel sounds - Integumentary Integumentary: Present: clear, warm, dry - Neurologic Neurologic: CNII-XII intact, moves all extremities Results - Labs CBC & Chem 7: 04/30/18 11:35 04/30/18 11:35 Labs: Laboratory Last Values WBC 11.4 K/mm3 (4.5-11.0) H 04/30/18 11:35 RBC 4.91 M/mm3 (3.65-5.03) 04/30/18 11:35 Hgb 14.9 gm/dl (10.1-14.3) H 04/30/18 11:35 Hct 44.4 % (30.3-42.9) H 04/30/18 11:35 MCV 90 fl (79-97) 04/30/18 11:35 MCH 30 pg (28-32) 04/30/18 11:35 MCHC 34 % (30-34) 04/30/18 11:35 RDW 14.6 % (13.2-15.2) 04/30/18 11:35 Plt Count 273 K/mm3 (140-440) 04/30/18 11:35 Lymph % (Auto) 30.6 % (13.4-35.0) 04/30/18 11:35 [place] % (Auto) 9.1 % (0.0-7.3) H 04/30/18 11:35 Eos % (Auto) 1.2 % (0.0-4.3) 04/30/18 11:35 Baso % (Auto) 0.8 % (0.0-1.8) 04/30/18 11:35 Lymph # 3.5 K/mm3 (1.2-5.4) 04/30/18 11:35 [place] # 1.0 K/mm3 (0.0-0.8) H 04/30/18 11:35 Eos # 0.1 K/mm3 (0.0-0.4) 04/30/18 11:35 Baso # 0.1 K/mm3 (0.0-0.1) 04/30/18 11:35 Seg Neutrophils % 58.3 % (40.0-70.0) 04/30/18 11:35 Seg Neutrophils # 6.7 K/mm3 (1.8-7.7) 04/30/18 11:35 PT 12.4 Sec. (12.2-14.9) 04/30/18 11:35 INR 0.87 (0.87-1.13) 04/30/18 11:35 APTT 26.2 Sec. (24.2-36.6) 04/30/18 11:35 Thrombin Time 16.6 Sec. (15.1-19.6) 04/30/18 11:35 Sodium 141 mmol/L (137-145) 04/30/18 11:35 Potassium 3.7 mmol/L (3.6-5.0) 04/30/18 11:35 Chloride 101.0 mmol/L (98-107) 04/30/18 11:35 Carbon Dioxide 20 mmol/L (22-30) L 04/30/18 11:35 Anion Gap 24 mmol/L 04/30/18 11:35 BUN 16 mg/dL (7-17) 04/30/18 11:35 Creatinine 1.0 mg/dL (0.7-1.2) 04/30/18 11:35 Estimated GFR 53 ml/min 04/30/18 11:35 BUN/Creatinine Ratio 16 % 04/30/18 11:35 Glucose 224 mg/dL (65-100) H 04/30/18 11:35 POC Glucose 133 (70-105) H 05/02/18 07:49 Calcium 9.0 mg/dL (8.4-10.2) 04/30/18 11:35 Magnesium 1.60 mg/dL (1.7-2.3) L 04/30/18 11:35 Troponin T < 0.010 ng/mL (0.00-0.029) 04/30/18 11:35 Urine Color Yellow (Yellow) 04/30/18 12:05 Urine Turbidity Clear (Clear) 04/30/18 12:05 Urine pH 5.0 (5.0-7.0) 04/30/18 12:05 Ur Specific [place] 1.011 (1.003-1.030) 04/30/18 12:05 Urine Protein <15 mg/dl mg/dL (Negative) 04/30/18 12:05 Urine Glucose (UA) >=500 mg/dL (Negative) 04/30/18 12:05 Urine Ketones Neg mg/dL (Negative) 04/30/18 12:05 Urine Blood Neg (Negative) 04/30/18 12:05 Urine Nitrite Neg (Negative) 04/30/18 12:05 Urine Bilirubin Neg (Negative) 04/30/18 12:05 Urine Urobilinogen < 2.0 mg/dL (<2.0) 04/30/18 12:05 Ur Leukocyte Esterase Neg (Negative) 04/30/18 12:05 Urine WBC (Auto) 1.0 /HPF (0.0-6.0) 04/30/18 12:05 Urine RBC (Auto) < 1.0 /HPF (0.0-6.0) 04/30/18 12:05 Urine Bacteria (Auto) 4+ /HPF (Negative) 04/30/18 12:05 Urine Mucus Few /HPF 04/30/18 12:05 Active Medications - Current Medications Current Medications: Generic Name Dose Route Start Last Admin Trade Name Freq PRN Reason Stop Dose Admin Acetaminophen 650 mg 04/30/18 15:51 Tylenol PO Q4H PRN Pain, Mild (1-3) Albuterol 2.5 mg 04/30/18 15:51 Proventil IH Q3HRT PRN Shortness Of Breath Amlodipine Besylate 10 mg 04/30/18 22:00 05/02/18 09:18 Norvasc PO 10 mg QDAY [facility] Administration Atorvastatin Calcium 20 mg 04/30/18 22:00 05/01/18 21:25 Lipitor PO 20 mg QHS [facility] Administration Bisacodyl 10 mg 04/30/18 15:51 Dulcolax [place] QDAY PRN Constipation Citalopram Hydrobromide 20 mg 05/01/18 10:00 05/02/18 09:19 Celexa PO 20 mg QDAY [facility] Administration Dextrose 50 ml 04/30/18 20:39 D50w (25gm) Syringe IV PRN PRN Hypoglycemia Insulin Human Lispro 0 unit 04/30/18 22:00 05/02/18 08:22 Humalog SUB-Q Not Given [facility] Protocol Levothyroxine Sodium 50 mcg 05/01/18 10:00 05/02/18 09:19 Synthroid PO 50 mcg QAM [facility] Administration Lisinopril 40 mg 04/30/18 22:00 05/02/18 09:19 Zestril PO 40 mg QDAY [facility] Administration Magnesium Hydroxide 30 ml 04/30/18 15:51 Milk Of Magnesia PO Q4H PRN Constipation Metoclopramide HCl 10 mg 04/30/18 15:51 Reglan PO Q6H PRN Nausea And Vomiting Ondansetron HCl 4 mg 04/30/18 15:51 Zofran IV Q8H PRN Nausea And Vomiting Promethazine HCl 25 mg 04/30/18 15:51 Phenergan MO Q6H PRN Nausea And Vomiting Sodium Chloride 10 ml 04/30/18 15:51 Sodium Chloride Flush Syringe 10 Ml IV PRN PRN LINE FLUSH
--- NOTE | 2018-05-02 15:43 | Progress Note ---
Subjective Date of service: 05/02/18 Interval history: nothing surgical on the carotid u/s to my review of the report... plan EEG given the hx of abrupt confusion posssible partial seizure Objective - Vital Sign Vital Signs - 12hr 05/02/18 05/02/18 05/02/18 04:43 07:47 09:18 Temperature 98.0 F 98.4 F Pulse Rate 71 76 76 Respiratory 22 18 Rate Blood Pressure 106/38 136/62 136/62 O2 Sat by Pulse 95 89 Oximetry 05/02/18 05/02/18 05/02/18 09:19 09:23 11:32 Temperature 97.9 F Pulse Rate 76 79 Respiratory 18 Rate Blood Pressure 136/62 103/37 O2 Sat by Pulse 93 95 Oximetry 05/02/18 15:31 Temperature 97.9 F Pulse Rate 74 Respiratory 18 Rate Blood Pressure 123/47 O2 Sat by Pulse 91 Oximetry - Laboratory Findings CBC and BMP: 04/30/18 11:35 04/30/18 11:35 Abnormal Lab Findings: Abnormal Labs 04/30/18 04/30/18 04/30/18 11:21 11:35 11:35 WBC 11.4 H Hgb 14.9 H Hct 44.4 H [place] % (Auto) 9.1 H [place] # 1.0 H Carbon Dioxide 20 L Glucose 224 H POC Glucose 213 H Magnesium 04/30/18 04/30/18 05/01/18 11:35 22:16 08:07 WBC Hgb Hct [place] % (Auto) [place] # Carbon Dioxide Glucose POC Glucose 154 H 159 H Magn[place] 1.60 L 05/01/18 05/01/18 05/01/18 11:28 16:00 21:19 WBC Hgb Hct [place] % (Auto) [place] # Carbon Dioxide Glucose POC Glucose 190 H 147 H 160 H Magnesium 05/02/18 05/02/18 07:49 11:33 WBC Hgb Hct [place] % (Auto) [place] # Carbon Dioxide Glucose POC Glucose 133 H 194 H Magnesium
[2018-05-03] MEDS: HumaLOG SUB-Q SCH ×4 (07:45→21:04)
[2018-05-03] MEDS: ZESTRIL PO SCH (10:58)
[2018-05-03] MEDS: NORVASC PO SCH (10:58)
[2018-05-03] MEDS: SYNTHROID PO SCH (10:58)
[2018-05-03] MEDS: celeXA PO SCH (10:58)
--- NOTE | 2018-05-03 12:22 | Magnetic Resonance Report ---
MRI OF THE BRAIN WITHOUT CONTRAST: HISTORY: CVA PROCEDURE: Multiplanar, multisequence MR imaging of the brain without IV contrast was performed. FINDINGS: CT head dated 04/30/18 was reviewed. Mild diffuse volume loss and mild nonspecific chronic white matter changes are again identified. No evidence for acute ischemia, hemorrhage or mass. No chronic infarct or extra-axial fluid collection. The midline structures are central. The basal cisterns are patent. Normal ventricular size. The orbital cavities and sella turcica demonstrate no abnormality. The visualized paranasal sinuses and mastoid air cells are well aerated. IMPRESSION: No acute intracranial process is identified. No evidence for recent CVA. Diffuse volume loss. Nonspecific chronic white matter changes.
--- NOTE | 2018-05-03 12:23 | Magnetic Resonance Report ---
MRA HEAD WITHOUT CONTRAST HISTORY: CVA. [id number] imaging with MIP reformations of the [place] is submitted. The arteries appear widely patent and free of hemodynamically significant stenosis, aneurysm or dissection. 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 IMPRESSION: Normal variant MRA head.
--- NOTE | 2018-05-03 12:39 | Progress Note ---
Assessment and Plan Assessment and plan: Acute CVA. MRI/MRA of brain essentially negative. Carotid Dopplers revealed no hemodynamic significant stenosis. Echocardiogram and EEG pending. Neurology following. Start aspirin. Physical therapy recommends subacute rehabilitation. Encephalopathy. Resolved. Hypertension. Continue antihypertensive medications. Diabetes mellitus type II. Continue Accu-Cheks and sliding scale as Disposition. As above. History Interval history: No new issues overnight. Hospitalist Physical - Constitutional Vitals: Temp Pulse Resp BP Pulse Ox 99.2 F 77 18 104/42 96 05/03/18 12:17 05/03/18 12:17 05/03/18 12:17 05/03/18 12:17 05/03/18 12:17 General appearance: Present: no acute distress - EENT Eyes: Present: PERRL, EOM intact ENT: hearing intact, clear oral mucosa, dentition normal - Neck Neck: Present: supple, normal ROM - Respiratory Respiratory effort: normal Respiratory: bilateral: CTA - Cardiovascular Rhythm: regular Heart Sounds: Present: S1 & S2. Absent: gallop, rub - Extremities Extremities: no ischemia, No edema, Full ROM - Abdominal General gastrointestinal: soft, non-tender, non-distended, normal bowel sounds - Integumentary Integumentary: Present: clear, warm, dry - Neurologic Neurologic: CNII-XII intact, moves all extremities Results - Labs CBC & Chem 7: 04/30/18 11:35 04/30/18 11:35 Labs: Laboratory Last Values WBC 11.4 K/mm3 (4.5-11.0) H 04/30/18 11:35 RBC 4.91 M/mm3 (3.65-5.03) 04/30/18 11:35 Hgb 14.9 gm/dl (10.1-14.3) H 04/30/18 11:35 Hct 44.4 % (30.3-42.9) H 04/30/18 11:35 MCV 90 fl (79-97) 04/30/18 11:35 MCH 30 pg (28-32) 04/30/18 11:35 MCHC 34 % (30-34) 04/30/18 11:35 RDW 14.6 % (13.2-15.2) 04/30/18 11:35 Plt Count 273 K/mm3 (140-440) 04/30/18 11:35 Lymph % (Auto) 30.6 % (13.4-35.0) 04/30/18 11:35 [place] % (Auto) 9.1 % (0.0-7.3) H 04/30/18 11:35 Eos % (Auto) 1.2 % (0.0-4.3) 04/30/18 11:35 Baso % (Auto) 0.8 % (0.0-1.8) 04/30/18 11:35 Lymph # 3.5 K/mm3 (1.2-5.4) 04/30/18 11:35 [place] # 1.0 K/mm3 (0.0-0.8) H 04/30/18 11:35 Eos # 0.1 K/mm3 (0.0-0.4) 04/30/18 11:35 Baso # 0.1 K/mm3 (0.0-0.1) 04/30/18 11:35 Seg Neutrophils % 58.3 % (40.0-70.0) 04/30/18 11:35 Seg Neutrophils # 6.7 K/mm3 (1.8-7.7) 04/30/18 11:35 PT 12.4 Sec. (12.2-14.9) 04/30/18 11:35 INR 0.87 (0.87-1.13) 04/30/18 11:35 APTT 26.2 Sec. (24.2-36.6) 04/30/18 11:35 Thrombin Time 16.6 Sec. (15.1-19.6) 04/30/18 11:35 Sodium 141 mmol/L (137-145) 04/30/18 11:35 Potassium 3.7 mmol/L (3.6-5.0) 04/30/18 11:35 Chloride 101.0 mmol/L (98-107) 04/30/18 11:35 Carbon Dioxide 20 mmol/L (22-30) L 04/30/18 11:35 Anion Gap 24 mmol/L 04/30/18 11:35 BUN 16 mg/dL (7-17) 04/30/18 11:35 Creatinine 1.0 mg/dL (0.7-1.2) 04/30/18 11:35 Estimated GFR 53 ml/min 04/30/18 11:35 BUN/Creatinine Ratio 16 % 04/30/18 11:35 Glucose 224 mg/dL (65-100) H 04/30/18 11:35 POC Glucose 127 (70-105) H 05/03/18 08:10 Calcium 9.0 mg/dL (8.4-10.2) 04/30/18 11:35 Magnesium 1.60 mg/dL (1.7-2.3) L 04/30/18 11:35 Troponin T < 0.010 ng/mL (0.00-0.029) 04/30/18 11:35 Urine Color Yellow (Yellow) 04/30/18 12:05 Urine Turbidity Clear (Clear) 04/30/18 12:05 Urine pH 5.0 (5.0-7.0) 04/30/18 12:05 Ur Specific [place] 1.011 (1.003-1.030) 04/30/18 12:05 Urine Protein <15 mg/dl mg/dL (Negative) 04/30/18 12:05 Urine Glucose (UA) >=500 mg/dL (Negative) 04/30/18 12:05 Urine Ketones Neg mg/dL (Negative) 04/30/18 12:05 Urine Blood Neg (Negative) 04/30/18 12:05 Urine Nitrite Neg (Negative) 04/30/18 12:05 Urine Bilirubin Neg (Negative) 04/30/18 12:05 Urine Urobilinogen < 2.0 mg/dL (<2.0) 04/30/18 12:05 Ur Leukocyte Esterase Neg (Negative) 04/30/18 12:05 Urine WBC (Auto) 1.0 /HPF (0.0-6.0) 04/30/18 12:05 Urine RBC (Auto) < 1.0 /HPF (0.0-6.0) 04/30/18 12:05 Urine Bacteria (Auto) 4+ /HPF (Negative) 04/30/18 12:05 Urine Mucus Few /HPF 04/30/18 12:05 Active Medications - Current Medications Current Medications: Generic Name Dose Route Start Last Admin Trade Name Freq PRN Reason Stop Dose Admin Acetaminophen 650 mg 04/30/18 15:51 Tylenol PO Q4H PRN Pain, Mild (1-3) Albuterol 2.5 mg 04/30/18 15:51 Proventil IH Q3HRT PRN Shortness Of Breath Amlodipine Besylate 10 mg 04/30/18 22:00 05/03/18 10:58 Norvasc PO 10 mg QDAY OSCAR Administration Atorvastatin Calcium 20 mg 04/30/18 22:00 05/02/18 23:11 Lipitor PO 20 mg QHS OSCAR Administration Bisacodyl 10 mg 04/30/18 15:51 Dulcolax [place] QDAY PRN Constipation Citalopram Hydrobromide 20 mg 05/01/18 10:00 05/03/18 10:58 Celexa PO 20 mg QDAY OSCAR Administration Dextrose 50 ml 04/30/18 20:39 D50w (25gm) Syringe IV PRN PRN Hypoglycemia Insulin Human Lispro 0 unit 04/30/18 22:00 05/02/18 23:11 Humalog SUB-Q 2 unit ACHS OSCAR Administration Protocol Levothyroxine Sodium 50 mcg 05/01/18 10:00 05/03/18 10:58 Synthroid PO 50 mcg QAM OSCAR Administration Lisinopril 40 mg 04/30/18 22:00 05/03/18 10:58 Zestril PO 40 mg QDAY OSCAR Administration Magnesium Hydroxide 30 ml 04/30/18 15:51 Milk Of Magnesia PO Q4H PRN Constipation Metoclopramide HCl 10 mg 04/30/18 15:51 Reglan PO Q6H PRN Nausea And Vomiting Ondansetron HCl 4 mg 04/30/18 15:51 Zofran IV Q8H PRN Nausea And Vomiting Promethazine HCl 25 mg 04/30/18 15:51 Phenergan [place] Q6H PRN Nausea And Vomiting Sodium Chloride 10 ml 04/30/18 15:51 Sodium Chloride Flush Syringe 10 Ml IV PRN PRN LINE FLUSH
[2018-05-03 13:00] LABS: Chol/HDL Ratio 3.15 %
[2018-05-04 05:31] LABS: Basophils # (Auto) 0.1 K/mm3 (0.0-0.1); Basophils % (Auto) 0.7 % (0.0-1.8); Eosinophils # (Auto) 0.3 K/mm3 (0.0-0.4); Eosinophils % (Auto) 2.8 % (0.0-4.3); Hematocrit 39.3 % (30.3-42.9); Hemoglobin 13.3 gm/dl (10.1-14.3); Lymphocytes # (Auto) 3.4 K/mm3 (1.2-5.4); Lymphocytes % (Auto) 27.6 % (13.4-35.0); Mean Corpuscular HGB Conc 34 % (30-34); Mean Corpuscular Volume 90 fl (79-97); Monocytes # (Auto) 1.2 K/mm3 (0.0-0.8); Platelet Count 257 K/mm3 (140-440); Red Blood Count 4.37 M/mm3 (3.65-5.03); Red Cell Distribution Width 15.1 % (13.2-15.2)
[2018-05-04 06:13] LABS: Calcium 8.9 mg/dL (8.4-10.2)
[2018-05-04] MEDS: HumaLOG SUB-Q SCH ×4 (07:42→21:59)
[2018-05-04] MEDS: NORVASC PO SCH (09:01)
[2018-05-04] MEDS: celeXA PO SCH (09:02)
[2018-05-04] MEDS: ZESTRIL PO SCH (09:02)
[2018-05-04] MEDS: SYNTHROID PO SCH (09:02)
[2018-05-04] MEDS: BABY ASPIRIN PO SCH (12:59)
--- NOTE | 2018-05-04 15:21 | Progress Note ---
Assessment and Plan Assessment and plan: Acute CVA. MRI/MRA of brain essentially negative. Carotid Dopplers revealed no hemodynamic significant stenosis. Echocardiogram and EEG pending. Neurology following. Start aspirin. Physical therapy recommends subacute rehabilitation. Encephalopathy. Resolved. Hypertension. Continue antihypertensive medications. Diabetes mellitus type II. Continue Accu-Cheks and sliding scale as Disposition. Subacute rehab. History Interval history: Patient was seen and evaluated this morning. patient denied headache, shortness of breath or weakness. Hospitalist Physical - Physical exam Narrative exam: Not in cardiopulmonary distress. The patient appeared well nourished and normally developed. Vital signs as documented. Head exam is unremarkable. No scleral icterus . Neck is without jugular venous distension, thyromegaly, or carotid bruits. Lungs are clear to auscultation. Cardiac exam reveals regular rate and Rhythm. First and second heart sounds normal. No murmurs, rubs or gallops. Abdominal exam reveals normal bowel sounds, no masses, no organomegaly and no aortic enlargement. Extremities are nonedematous and both femoral and pedal pulses are normal. 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 - Constitutional Vitals: Temp Pulse Resp BP Pulse Ox 97.6 F 92 H 18 123/58 94 05/04/18 13:06 05/04/18 13:06 05/04/18 13:06 05/04/18 13:06 05/04/18 13:06 General appearance: Present: no acute distress Results - Labs CBC & Chem 7: 05/04/18 04:50 05/04/18 04:50 Labs: Laboratory Last Values WBC 12.4 K/mm3 (4.5-11.0) H 05/04/18 04:50 RBC 4.37 M/mm3 (3.65-5.03) 05/04/18 04:50 Hgb 13.3 gm/dl (10.1-14.3) 05/04/18 04:50 Hct 39.3 % (30.3-42.9) 05/04/18 04:50 MCV 90 fl (79-97) 05/04/18 04:50 MCH 31 pg (28-32) 05/04/18 04:50 MCHC 34 % (30-34) 05/04/18 04:50 RDW 15.1 % (13.2-15.2) 05/04/18 04:50 Plt Count 257 K/mm3 (140-440) 05/04/18 04:50 Lymph % (Auto) 27.6 % (13.4-35.0) 05/04/18 04:50 [place] % (Auto) 10.0 % (0.0-7.3) H 05/04/18 04:50 Eos % (Auto) 2.8 % (0.0-4.3) 05/04/18 04:50 Baso % (Auto) 0.7 % (0.0-1.8) 05/04/18 04:50 Lymph # 3.4 K/mm3 (1.2-5.4) 05/04/18 04:50 [place] # 1.2 K/mm3 (0.0-0.8) H 05/04/18 04:50 Eos # 0.3 K/mm3 (0.0-0.4) 05/04/18 04:50 Baso # 0.1 K/mm3 (0.0-0.1) 05/04/18 04:50 Seg Neutrophils % 58.9 % (40.0-70.0) 05/04/18 04:50 Seg Neutrophils # 7.3 K/mm3 (1.8-7.7) 05/04/18 04:50 PT 12.4 Sec. (12.2-14.9) 04/30/18 11:35 INR 0.87 (0.87-1.13) 04/30/18 11:35 APTT 26.2 Sec. (24.2-36.6) 04/30/18 11:35 Thrombin Time 16.6 Sec. (15.1-19.6) 04/30/18 11:35 Sodium 138 mmol/L (137-145) 05/04/18 04:50 Potassium 3.9 mmol/L (3.6-5.0) 05/04/18 04:50 Chloride 106.8 mmol/L (98-107) 05/04/18 04:50 Carbon Dioxide 20 mmol/L (22-30) L 05/04/18 04:50 Anion Gap 15 mmol/L 05/04/18 04:50 BUN 21 mg/dL (7-17) H 05/04/18 04:50 Creatinine 1.0 mg/dL (0.7-1.2) 05/04/18 04:50 Estimated GFR 53 ml/min 05/04/18 04:50 BUN/Creatinine Ratio 21 % 05/04/18 04:50 Glucose 136 mg/dL (65-100) H 05/04/18 04:50 POC Glucose 255 (70-105) H 05/04/18 11:35 Calcium 8.9 mg/dL (8.4-10.2) 05/04/18 04:50 Magnesium 1.60 mg/dL (1.7-2.3) L 04/30/18 11:35 Troponin T < 0.010 ng/mL (0.00-0.029) 04/30/18 11:35 Triglycerides 160 mg/dL (2-149) H 05/03/18 12:21 Cholesterol 145 mg/dL (50-199) 05/03/18 12:21 LDL Cholesterol Direct 91 mg/dL (50-130) 05/03/18 12:21 HDL Cholesterol 46 mg/dL (40-59) 05/03/18 12:21 Cholesterol/HDL Ratio 3.15 % 05/03/18 12:21 Urine Color Yellow (Yellow) 04/30/18 12:05 Urine Turbidity Clear (Clear) 04/30/18 12:05 Urine pH 5.0 (5.0-7.0) 04/30/18 12:05 Ur Specific [place] 1.011 (1.003-1.030) 04/30/18 12:05 Urine Protein <15 mg/dl mg/dL (Negative) 04/30/18 12:05 Urine Glucose (UA) >=500 mg/dL (Negative) 04/30/18 12:05 Urine Ketones Neg mg/dL (Negative) 04/30/18 12:05 Urine Blood Neg (Negative) 04/30/18 12:05 Urine Nitrite Neg (Negative) 04/30/18 12:05 Urine Bilirubin Neg (Negative) 04/30/18 12:05 Urine Urobilinogen < 2.0 mg/dL (<2.0) 04/30/18 12:05 Ur Leukocyte Esterase Neg (Negative) 04/30/18 12:05 Urine WBC (Auto) 1.0 /HPF (0.0-6.0) 04/30/18 12:05 Urine RBC (Auto) < 1.0 /HPF (0.0-6.0) 04/30/18 12:05 Urine Bacteria (Auto) 4+ /HPF (Negative) 04/30/18 12:05 Urine Mucus Few /HPF 04/30/18 12:05 Active Medications - Current Medications Current Medications: Generic Name Dose Route Start Last Admin Trade Name Freq PRN Reason Stop Dose Admin Acetaminophen 650 mg 04/30/18 15:51 Tylenol PO Q4H PRN Pain, Mild (1-3) Albuterol 2.5 mg 04/30/18 15:51 Proventil IH Q3HRT PRN Shortness Of Breath Amlodipine Besylate 10 mg 04/30/18 22:00 05/04/18 09:01 Norvasc PO 10 mg QDAY OSCAR Administration Aspirin 81 mg 05/04/18 12:00 05/04/18 12:59 Baby Aspirin PO 81 mg QDAY OSCAR Administration Atorvastatin Calcium 20 mg 04/30/18 22:00 05/03/18 21:04 Lipitor PO 20 mg QHS OSCAR Administration Bisacodyl 10 mg 04/30/18 15:51 Dulcolax [place] QDAY PRN Constipation Citalopram Hydrobromide 20 mg 05/01/18 10:00 05/04/18 09:02 Celexa PO 20 mg QDAY OSCAR Administration Dextrose 50 ml 04/30/18 20:39 D50w (25gm) Syringe IV PRN PRN Hypoglycemia Insulin Human Lispro 0 unit 04/30/18 22:00 05/04/18 12:59 Humalog SUB-Q 3 unit ACHS OSCAR Administration Protocol Levothyroxine Sodium 50 mcg 05/01/18 10:00 05/04/18 09:02 Synthroid PO 50 mcg QAM OSCAR Administration Lisinopril 40 mg 04/30/18 22:00 05/04/18 09:02 Zestril PO 40 mg QDAY OSCAR Administration Magnesium Hydroxide 30 ml 04/30/18 15:51 Milk Of Magnesia PO Q4H PRN Constipation Metoclopramide HCl 10 mg 04/30/18 15:51 Reglan PO Q6H PRN Nausea And Vomiting Ondansetron HCl 4 mg 04/30/18 15:51 Zofran IV Q8H PRN Nausea And Vomiting Promethazine HCl 25 mg 04/30/18 15:51 Phenergan [place] Q6H PRN Nausea And Vomiting Sodium Chloride 10 ml 04/30/18 15:51 Sodium Chloride Flush Syringe 10 Ml IV PRN PRN LINE FLUSH
--- NOTE | 2018-05-04 16:03 | Progress Note ---
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 Objective - Vital Sign Vital Signs - 12hr 05/04/18 05/04/18 05/04/18 04:22 08:19 09:01 Temperature 98.1 F 98.8 F Pulse Rate 74 75 Pulse Rate [ From Monitor] Respiratory 16 18 Rate Blood Pressure 136/39 127/58 127/58 Blood Pressure [Left] O2 Sat by Pulse 93 Oximetry 05/04/18 05/04/18 05/04/18 09:02 09:50 10:00 Temperature Pulse Rate 75 71 Pulse Rate [ 75 From Monitor] Respiratory 16 Rate Blood Pressure 127/58 Blood Pressure [Left] O2 Sat by Pulse 93 Oximetry 05/04/18 13:06 Temperature 97.6 F Pulse Rate 92 H Pulse Rate [ From Monitor] Respiratory 18 Rate Blood Pressure Blood Pressure 123/58 [Left] O2 Sat by Pulse 94 Oximetry - Laboratory Findings CBC and BMP: 05/04/18 04:50 05/04/18 04:50 Abnormal Lab Findings: Abnormal Labs 04/30/18 04/30/18 04/30/18 11:21 11:35 11:35 WBC 11.4 H Hgb 14.9 H Hct 44.4 H [place] % (Auto) 9.1 H [place] # 1.0 H Carbon Dioxide 20 L BUN Glucose 224 H POC Glucose 213 H Magnesium Triglycerides 04/30/18 04/30/18 05/01/18 11:35 22:16 08:07 WBC Hgb Hct [place] % (Auto) [place] # Carbon Dioxide BUN Glucose POC Glucose 154 H 159 H Magnesium 1.60 L Triglycerides 05/01/18 05/01/18 05/01/18 11:28 16:00 21:19 WBC Hgb Hct [place] % (Auto) [place] # Carbon Dioxide BUN Glucose POC Glucose 190 H 147 H 160 H Magnesium Triglycerides 05/02/18 05/02/18 05/02/18 07:49 11:33 15:33 WBC Hgb Hct [place] % (Auto) [place] # Carbon Dioxide BUN Glucose POC Glucose 133 H 194 H 189 H Magnesium Triglycerides 05/02/18 05/03/18 05/03/18 20:14 08:10 12:18 WBC Hgb Hct [place] % (Auto) [place] # Carbon Dioxide BUN Glucose POC Glucose 207 H 127 H 235 H Magnesium Triglycerides 05/03/18 05/03/18 05/03/18 12:21 16:25 21:00 WBC Hgb Hct [place] % (Auto) [place] # Carbon Dioxide BUN Glucose POC Glucose 221 H 168 H Magnesium Triglycerides 160 H 05/04/18 05/04/18 05/04/18 04:50 04:50 07:29 WBC 12.4 H Hgb Hct [place] % (Auto) 10.0 H [place] # 1.2 H Carbon Dioxide 20 L BUN 21 H Glucose 136 H POC Glucose 132 H Magnesium Triglycerides 05/04/18 05/04/18 11:35 15:39 WBC Hgb Hct [place] % (Auto) [place] # Carbon Dioxide BUN Glucose POC Glucose 255 H 163 H Magnesium Triglycerides
[2018-05-05 09:15] VITALS: BP 137/52
[2018-05-05] MEDS: celeXA PO SCH (10:35)
[2018-05-05] MEDS: BABY ASPIRIN PO SCH (10:35)
[2018-05-05] MEDS: NORVASC PO SCH (10:35)
[2018-05-05] MEDS: SYNTHROID PO SCH (10:35)
[2018-05-05] MEDS: ZESTRIL PO SCH (10:35)
--- NOTE | 2018-05-05 11:14 | Discharge Summary ---
Providers - Providers Date of Admission: 04/30/18 15:51 Attending physician: DELFINA GOFF MD 04/30/18 Consult to Physician [CONS] Routine Comment: Consulting Provider: ANDREEA GRAYSON Physician Instructions: Reason For Exam: cva 04/30/18 15:51 Occupational Therapy Evaluate and Treat [CONS] Routine Comment: Reason For Exam: Neuro deficits Physical Therapy Evaluation and Treat [CONS] Routine Comment: Reason For Exam: Neuro deficits 04/30/18 15:52 Speech Therapy Evaluation and Treat [CONS] Routine Reason For Exam: swallow eval [facility] Reason for admission: TIA, deblity Condition: Stable Pertinent studies: MRI head IMPRESSION: No acute intracranial process is identified. No evidence for recent CVA. Diffuse volume loss. Nonspecific chronic white matter changes. Hospital course: TIA; MRI/MRA of brain essentially negative. Carotid Dopplers revealed no hemodynamic significant stenosis. Echocardiogram no thrombus. Neurology following. Ob aspirin and statin. Physical therapy recommends subacute rehabilitation. Encephalopathy. Resolved. Hypertension. Continue antihypertensive medications. Diabetes mellitus type II. continue home medications. Patient was hemodynamically stable and was discharged. Patient's appropriate home medications were refilled as at discharge. Patient discharged to SNF. Management plan was discussed with the patient and her son. Disposition: [id number]/[place]-03 SNF [facility] Time spent for discharge: 32 minutes - Discharge Diagnoses (1) CVA (cerebral vascular accident) Status: Ruled-out Qualifiers: CVA mechanism: unspecified Qualified Code(s): I63.9 - Cerebral infarction, unspecified (2) Debility Status: Acute (3) Encephalopathy Status: Acute (4) Fall Status: Acute Qualifiers: Encounter type: initial encounter Qualified Code(s): W19.XXXA - Unspecified fall, initial encounter (5) History of recent fall Status: Acute (6) Hypertension Status: Acute (7) Slurred speech Status: Acute (8) Inability to walk Status: Acute Core Measure Documentation - Palliative Care Palliative Care/ Comfort Measures: Not Applicable - Core Measures Any of the following diagnoses?: stroke (tia) - Stroke Discharge Requirements Statin for LDL = or >70 mg/dl on DC: Yes Anticoag for atrial fib/atrial flutter: Not Applicable Antithrombotic for ischemic stroke: Yes Exam - Physical Exam Narrative exam: Not in cardiopulmonary distress. The patient appeared well nourished and normally developed. Vital signs as documented. Head exam is unremarkable. No scleral icterus . Neck is without jugular venous distension, thyromegaly, or carotid bruits. Lungs are clear to auscultation. Cardiac exam reveals regular rate and Rhythm. First and second heart sounds normal. No murmurs, rubs or gallops. Abdominal exam reveals normal bowel sounds, no masses, no organomegaly and no aortic enlargement. Extremities are nonedematous and both femoral and pedal pulses are normal. 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
== END 2018-05-05 12:42 | DRG 57 ==
LOC: ED 11:14 → 4A 15:51
PROVIDERS: ADMIT Internal Medicine; ATTEND Internal Medicine
DX: G31.9 Degenerative disease of nervous system, unspecified (principal); G93.40 Encephalopathy, unspecified; R65.10 Systemic inflammatory response syndrome (SIRS) of non-infectious origin without acute organ dysfunction; F03.91 Unspecified dementia, unspecified severity, with behavioral disturbance; I10 Essential (primary) hypertension; E11.9 Type 2 diabetes mellitus without complications; R58 Hemorrhage, not elsewhere classified; E03.9 Hypothyroidism, unspecified; F03.90 Unspecified dementia, unspecified severity, without behavioral disturbance, psychotic disturbance, mood disturbance, and anxiety; W18.30XA Fall on same level, unspecified, initial encounter; Y93.89 Activity, other specified; Y99.8 Other external cause status; Y92.89 Other specified places as the place of occurrence of the external cause; Z79.84 Long term (current) use of oral hypoglycemic drugs; Z96.653 Presence of artificial knee joint, bilateral; Z90.49 Acquired absence of other specified parts of digestive tract; Z91.81 History of falling; Z88.8 Allergy status to other drugs, medicaments and biological substances
CPT/HCPCS: 36415; 70450; 70486; 70544; 70551; 71045; 72125; 80048; 80061; 81001; 82962; 83735; 84484; 85025; 85610; 85670; 85730; 93005; 93010; 93306; 93880; G0378; A9270-GY; J0696; J1815; J3475